=== PATIENT | male | born 1980 | race Caucasian/White ===

== ENCOUNTER 2024-09-19 21:52 | Emergency (ER) | payer OTHER, SELFPAY ==
[2024-09-19 22:04] VITALS: BP 98/65; PULSE 119; RESP 20; TEMP 36.7; O2SAT 99; BMI 45.2
--- NOTE | 2024-09-19 22:07 | ED.GENADULT ---
HPI - General Adult General Chief complaint: Nausea/Vomiting Stated complaint: dehydrated, abdominal pain Time Seen by Provider: 09/19/24 22:04 History of Present Illness HPI narrative: CC: Nausea/ Vomiting, Diarrhea pt. with symptoms every 15 minutes since 1800 . watery diarrhea. chills. denies fevers. 44-year-old man presenting to the emergency department with vomiting and diarrhea. Had cold symptoms for a week and has been taking life Savers. Ate a whole pack of them and then ?everything went to shit?. Started vomiting and having copious diarrhea. No hematochezia hematemesis described. Concern now of dehydration. They note him also to be prediabetic and so worried about his ?blood pressure?. Also sweats and feeling lightheaded. Generalized upper abdominal pain. Father is a diabetic and have seen him go through this they say. Related Data Home Medications ?Medication ?Instructions ?Recorded ?Confirmed desloratadine 5 mg tablet 5 mg PO DAILY 09/19/24 09/19/24 famotidine 20 mg tablet 20 mg PO BID 09/19/24 09/19/24 lisinopril 40 mg tablet 40 mg PO DAILY 09/19/24 09/19/24 montelukast 10 mg tablet 10 mg PO DAILY 09/19/24 09/19/24 simvastatin 20 mg tablet 20 mg PO QPM 09/19/24 09/19/24 Previous Rx's ?Medication ?Instructions ?Recorded prednisone 20 mg tablet 40 mg (2 x 20 mg) PO DAILY 5 days 09/20/24 #10 tabs Allergies Allergy/AdvReac Type Severity Reaction Status Date / Time No Known Drug Allergies Allergy Verified 09/19/24 22:07 Review of Systems Status of ROS: Reports: 6 or more systems reviewed and unremarkable except as noted in History and below [facility] Medical History No significant past medical history Surgical History No significant past surgical history Social History Smoking Status: Never smoker Second hand tobacco smoke exposure: No How often do you have a drink containing alcohol: never AUDIT-C Alcohol total score: 0 Non-prescribed substance use: denies use Exam Narrative: Exam Narrative: Appears generally uncomfortable. Alert and converses easily. Skin is warm and dry. Sounds congested nasopharynx. Oropharynx is sticky. No facial swelling erythema or tenderness. TMs bilaterally are free of fluid but scarred. Lungs are clear. Heart initially tachycardic in a regular rhythm. Abdomen is soft with present bowel sounds. Tender across the upper abdomen. Well-perfused peripherally. Moving all extremities without difficulty. Const: Vital Signs, click to edit/add: Vital Signs - 24 hr 09/19/24 22:04 09/19/24 22:17 09/19/24 22:30 Temperature 98.0 F 98.0 F Pulse Rate [Right Pulse Oximeter] 119 H Respiratory Rate 20 Blood Pressure [Ri ght Upper Arm] 98/65 Pulse Oximetry 99 95 Oxygen Delivery Me thod Room Air 09/19/24 23:52 09/19/24 23:56 09/20/24 01:44 Temperature 98.0 F 98.0 F 98.0 F Pulse Rate [Right Pulse Oximeter] 105 H 100 Respiratory Rate 20 20 Blood Pressure [Ri ght Upper Arm] 105/74 112/74 Pulse Oximetry 99 99 Oxygen Delivery Me thod Room Air Room Air 09/20/24 01:47 Temperature 98.0 F Pulse Rate [Right Pulse Oximeter] 100 Respiratory Rate 20 Blood Pressure [Ri ght Upper Arm] 112/74 Pulse Oximetry Oxygen Delivery Me thod Documenting provider has reviewed patient's vital signs: yes Course Vital Signs Vital signs: Initial Vital Signs Temperature 98.0 F 09/19/24 22:04 Temperature Source Temporal Artery Scan 09/19/24 22:04 Pulse Rate 119 H 09/19/24 22:04 Respiratory Rate 20 09/19/24 22:04 Blood Pressure 98/65 09/19/24 22:04 Blood Pressure Mean 76 09/19/24 22:04 Blood Pressure Position Sitting 09/19/24 22:04 Pulse Oximetry 99 09/19/24 22:04 Oxygen Delivery Method Room Air 09/19/24 22:04 Vital Signs Temperature 98.0 F 09/19/24 22:04 Pulse Rate 119 H 09/19/24 22:04 Respiratory Rate 20 09/19/24 22:04 Blood Pressure 98/65 09/19/24 22:04 Pulse Oximetry 99 09/19/24 22:04 Oxygen Delivery Method Room Air 09/19/24 22:04 Temperature 98.0 F 09/20/24 01:47 Pulse Rate 100 09/20/24 01:47 Respiratory Rate 20 09/20/24 01:47 Blood Pressure 112/74 09/20/24 01:47 Pulse Oximetry 99 09/20/24 01:44 Oxygen Delivery Method Room Air 09/20/24 01:44 Medications Administered Medications: Discontinued Medications Generic Name Dose Route Start Last Admin Trade Name Shiva PRN Reason Stop Dose Admin Sodium Chloride 1,000 mls @ 1,000 mls/hr 09/19/24 22:16 09/19/24 23:56 0.9 % Sodium Chloride 1000 Ml IV 09/19/24 23:15 Infused .Q1H ONE Infusion Sodium Chloride 1,000 mls @ 1,000 mls/hr 09/19/24 23:34 09/20/24 01:41 0.9 % Sodium Chloride 1000 Ml IV 09/20/24 00:33 Infused .Q1H ONE Infusion Ketorolac Tromethamine 30 mg 09/19/24 22:09 09/19/24 22:17 Ketorolac 30 Mg/Ml Inj IVP 09/19/24 22:10 30 mg ONCE ONE Administration Ondansetron HCl 4 mg 09/19/24 22:08 09/19/24 22:17 Ondansetron 2 Mg/Ml Inj IVP 09/19/24 22:09 4 mg ONCE ONE Administration Prednisone 60 mg 09/20/24 01:12 09/20/24 01:16 Prednisone 20 Mg Tablet PO 09/20/24 01:13 60 mg ONCE ONE Administration Medical Decision Making [facility] Narrative Medical decision making narrative: Vomiting and diarrheal illness of uncertain etiology. Influenza prevalent in the community at this point and would check for this. Pending labs, improvement might need imaging but I do not think initially. Initiating IV fluid and antiemetic and ketorolac. Would like sooner than later pain relief so also given 4 mg of morphine in initial medication volley. White count somewhat elevated but not unexpected I think. Feels improved with treatment as above. He would appreciate though another L. Also requesting further treatment for residual sinus symptoms. See patient discharge plan for further discussion I am happy you are feeling better. Focus on hydration. Consider sleeping under the mist of a cool mist humidifier. Menthol vapors might be helpful. Neti pot and nasal saline rinses. Prescription of Zofran from [facility] has been written. Will also give you a course of prednisone (unable to fill through [facility] for <del>summary</del> some reason). Would consider taking also 12 hour pseudoephedrine for drying and decongestion Lab Data Lab results reviewed: Yes I reviewed the patient's lab results Labs: Lab Results 09/19/24 Range/Units 22:30 WBC 14.54 H (4.50-11.00) K/uL RBC 5.39 (4.30-5.90) m/uL Hgb 14.9 (13.5-17.5) gm/dL Hct 45.0 (37.0-53.0) % MCV 84 (80-100) fL MCH 28 (26-34) pg MCHC 33 (32-36) gm/dL RDW Coeff of Radha 12.5 (11.5-15.5) % Plt Count 287 (140-440) K/uL Neut % (Auto) 91.2 H (42.0-72.0) % Lymph % (Auto) 3.4 L (20-44) % Carson % (Auto) 4.4 (0.0-11.0) % Eos % (Auto) 0.6 (0.0-7.0) % Baso % (Auto) 0.1 (0.0-3.0) % Neut # (Auto) 13.30 H (1.7-7.0) K/uL Lymph # (Auto) 0.50 L (0.90-2.90) K/uL Carson # (Auto) 0.60 (0.00-0.90) K/UL Eos # (Auto) 0.10 (0.00-0.50) K/uL Baso # (Auto) 0.00 (0.00-0.30) K/uL Abs Immat Gran (auto) 0.00 (0.00-0.30) K/uL Imm/Tot Granulo (auto) 0.3 % Sodium 141 (135-149) mmol/L Potassium 4.6 (3.6-5.1) mmol/L Chloride 105 (96-114) mmol/L Carbon Dioxide 26 (20-32) mmol/L Anion Gap 10 (7-15) mEq/L BUN 16 (5-24) mg/dL Creatinine 1.0 (0.5-1.5) mg/dL Estimated Creat Clear 98.35 Estimated GFR 96 ml/min Glucose 130 H (60-115) mg/dL Calcium 9.1 (8.4-10.6) mg/dL Total Bilirubin 0.6 (0.1-1.5) mg/dL Direct Bilirubin 0.3 (0.0-0.5) mg/dL AST 22 (12-35) U/L ALT 30 (4-50) U/L Alkaline Phosphatase 69 (40-150) U/L Total Protein 8.0 (6.0-8.3) g/dL Albumin 4.6 (3.3-5.0) g/dL SARS-CoV-2 (PCR) Negative SARS-CoV-2 (Negative) Influenza Type A (PCR) Negative PCR FLU A (Negative) Influenza Type B (PCR) Negative PCR FLU B (Negative) Discharge Plan Discharge Clinical Impression: Gastroenteritis, Head cold Patient Disposition: Home w/ Parent or Adult Condition: Improved Additional Instructions: I am happy you are feeling better. Focus on hydration. Consider sleeping under the mist of a cool mist humidifier. Menthol vapors might be helpful. Neti pot and nasal saline rinses. Prescription of Zofran from [facility] has been written. Will also give you a course of prednisone (unable to fill through [facility] for <del>summary</del> some reason). Would consider taking also 12 hour pseudoephedrine for drying and decongestion Prescriptions: New prednisone 20 mg tablet 40 mg PO DAILY 5 Days Qty: 10 0RF No Action famotidine 20 mg tablet 20 mg PO BID desloratadine 5 mg tablet 5 mg PO DAILY simvastatin 20 mg tablet 20 mg PO QPM montelukast 10 mg tablet 10 mg PO DAILY lisinopril 40 mg tablet 40 mg PO DAILY Follow Up/Referrals: Russell Phillips MD [Staff Physician] - Stand Alone Forms: [employer] Info Instructions
[2024-09-19 22:17] VITALS: TEMP 36.7
[2024-09-19] MEDS: ONDANSETRON 2 MG/ML inj 4 MG IVP (22:17)
[2024-09-19] MEDS: KETOROLAC 30 MG/ML inj IVP (22:17)
[2024-09-19] MEDS: 0.9 % SODIUM CHLORIDE 1000 ml 1,000 ML IV (22:18)
[2024-09-19 22:30] VITALS: O2SAT 95
[2024-09-19 22:46] LABS: Basophils Percent Auto 0.1 % (0.0-3.0); Eosinophils Percent Auto 0.6 % (0.0-7.0); Hemoglobin* 14.9 gm/dL (13.5-17.5); Immature Granulocytes Pct Auto 0.3 %; Lymphocytes Percent Auto 3.4 % (20-44); Mean Corpuscular HGB Conc 33 gm/dL (32-36); Mean Corpuscular Hemoglobin 28 pg (26-34); Mean Corpuscular Volume 84 fL (80-100); Monocytes Percent Auto 4.4 % (0.0-11.0); Neutrophils Percent Auto 91.2 % (42.0-72.0); Platelet Count* 287 K/uL (140-440); RDW Coefficient of Variation % 12.5 % (11.5-15.5); Red Blood Count 5.39 m/uL (4.30-5.90); White Blood Count* 14.54 K/uL (4.50-11.00)
[2024-09-19 22:49] LABS: Slide Review Reflex No
[2024-09-19 22:59] LABS: Albumin* 4.6 g/dL (3.3-5.0)
[2024-09-19 23:00] LABS: Chloride* 105 mmol/L (96-114); Potassium* 4.6 mmol/L (3.6-5.1); Sodium* 141 mmol/L (135-149)
[2024-09-19 23:02] LABS: Anion Gap 10 mEq/L (7-15); Bilirubin Direct* 0.3 mg/dL (0.0-0.5); Bilirubin Total* 0.6 mg/dL (0.1-1.5); Carbon Dioxide* 26 mmol/L (20-32); Est. Creatinine Clearance* 98.35; Estimated Glomerular Filt Rate 96 ml/min
[2024-09-19 23:03] LABS: Alanine Aminotransferase* 30 U/L (4-50); Alkaline Phosphatase* 69 U/L (40-150); Aspartate Amino Transferase* 22 U/L (12-35); Blood Urea Nitrogen* 16 mg/dL (5-24); Calcium* 9.1 mg/dL (8.4-10.6); Glucose* 130 mg/dL (60-115)
[2024-09-19 23:25] LABS: PCR FLU A Negative PCR FLU A (Negative); PCR FLU B Negative PCR FLU B (Negative); SARS PCR* Negative SARS-CoV-2 (Negative)
[2024-09-19 23:52] VITALS: BP 105/74; PULSE 105; RESP 20; TEMP 36.7; O2SAT 99
[2024-09-19 23:56] VITALS: TEMP 36.7
[2024-09-20] MEDS: 0.9 % SODIUM CHLORIDE 1000 ml 1,000 ML IV (00:09)
[2024-09-20] MEDS: predniSONE 20 MG TABLET 60 MG PO (01:16)
[2024-09-20 01:44] VITALS: BP 112/74; PULSE 100; RESP 20; TEMP 36.7; O2SAT 99
[2024-09-20 01:47] VITALS: BP 112/74; PULSE 100; RESP 20; TEMP 36.7
== END 2024-09-20 01:47 | disposition home or self-care (01) ==
PROVIDERS: Emergency Provider Family Medicine
DX: K52.9 Noninfective gastroenteritis and colitis, unspecified (principal)
CPT/HCPCS: 36415; 80048; 80076; 85025; 87631; 94761; 96374; 96375; 99283; 99284; J1885; J2405; J7030; J7512